=== PATIENT | female | born 1990 | race Caucasian/White ===

== ENCOUNTER 2016-08-10 15:34 | Emergency (ER) | payer OTHER ==
[2016-08-10 15:58] VITALS: O2SAT 97
[2016-08-10] MEDS ORDERED: NS 1,000 ML IV ONE (16:17)
[2016-08-10 16:21] LABS: % IMMATURE GRANULYOCYTES 0.2 % (0.0-1.1); ABSOLUTE IMMATURE GRANULOCYTES 0.01 10^3/uL (0.00-0.10); ADD DIFF? NO; ADD MORPH? NO; ADD SCAN? NO; ATYPICAL LYMPHOCYTE FLAG 10 (0-99); FRAGMENT RBC FLAG 0 (0-99); HEMATOCRIT 38.4 % (38.0-47.0); HEMOGLOBIN 13.5 g/dL (12.6-16.3); LEFT SHIFT FLG 20 (0-99); LIPEMIA HEMOLYSIS FLAG 90 (0-99); MEAN CELL HEMOGLOBIN 32.5 pg (27.9-34.1); MEAN CELL HEMOGLOBIN CONCENTR. 35.2 g/dL (32.4-36.7); MEAN CELL VOLUME 92.5 fL (81.5-99.8); MEAN PLATELET VOLUME 13.8 fL (8.7-11.7); PLATELET CLUMPS FLAG 0 (0-99); PLATELET COUNT 156 10^3/uL (150-400); RED BLOOD CELL COUNT 4.15 10^6/uL (4.18-5.33); RED CELL DISTRIBUTION WIDTH 11.8 % (11.5-15.2)
[2016-08-10 16:33] LABS: ALANINE AMINOTRANSFERASE 27 IU/L (9-52); ALBUMIN 3.6 g/dL (3.5-5.0); ALKALINE PHOSPHATASE 52 IU/L (38-126); ANION GAP 12 mEq/L (8-16); ASPARTATE AMINOTRANSFERASE 24 IU/L (14-46); BILIRUBIN,TOTAL 0.5 mg/dL (0.1-1.4); CALCIUM 8.7 mg/dL (8.5-10.4); CARBON DIOXIDE 25 mEq/l (22-31); CHLORIDE 99 mEq/L (97-110); CREATININE 0.8 mg/dL (0.6-1.0); GLOMERULAR FILTRATION RATE > 60; GLUCOSE 189 mg/dL (70-100); POTASSIUM 3.6 mEq/L (3.5-5.2); SODIUM 136 mEq/L (134-144); TOTAL PROTEIN 6.6 g/dL (6.3-8.2)
[2016-08-10] MEDS ORDERED: IBUPROFEN 200 MG TAB PO ONE (16:59)
[2016-08-10] MEDS ORDERED: OSELTAMIVIR PHOSPHATE 75 MG CAP PO ONE (17:18)
[2016-08-10 17:23] LABS: COLOR YELLOW; LEUKOCYTE ESTERASE,URINE NEGATIVE (NEGATIVE); NITRITE,URINE NEGATIVE (NEGATIVE); PH,URINE 6.5 (5.0-7.5)
[2016-08-10 17:30] LABS: BACTERIA TRACE /hpf (NONE SEEN); WBC,URINE NONE SEEN /hpf (0-3)
--- NOTE | 2016-08-10 17:30 | EDPHY ---
H & P Stated Complaint: fever for 48 hours, body aches, congestion Time Seen by Provider: 08/10/16 15:51 HPI/ROS: CHIEF COMPLAINT: Cough and fever History by patient HISTORY OF PRESENT ILLNESS: 26-year-old woman with history of type 1 diabetes on insulin pump presents complaining of 2 days of fever as high as 101 at home, cough productive of some green sputum, clear nasal discharge, chest congestion and general malaise. She has had a couple episodes of vomiting has been unable to eat. She denies any diarrhea. She has been keeping down fluids. She denies any sore throat or abdominal pain. She denies any dysuria, urgency frequency or hematuria but does have low back pain. She has tried some ibuprofen and Tylenol at home. Her sugars have been under control. She just returned from a trip to [place] and is supposed to leave tomorrow for [place]. REVIEW OF SYSTEMS: As in HPI, and all other systems reviewed and are negative Source: Patient - Personal History LMP (Females 10-55): Now Tetanus Vaccine Date: < 10 years - Medical/Surgical History Hx Asthma: No Hx Chronic Respiratory Disease: No Hx Diabetes: Yes Hx Cardiac Disease: No Hx Renal Disease: No Hx Cirrhosis: No Hx Alcoholism: No Hx HIV/AIDS: No Hx Splenectomy or Spleen Trauma: No Other PMH: DM type 1, ankle sx, pneumonia, hypothyroid, depression - Social History Smoking Status: Never smoked - Physical Exam Exam: General Appearance: Alert, nontoxic-appearing. Eyes: Pupils equal and round no pallor or injection. ENT, Mouth: Mucous membranes moist. no erythema or tonsillar enlargement or exudates, no cervical or submandibular adenopathy Respiratory: Normal, effort, There are no retractions, lungs are clear to auscultation. Positive end-expiratory wheezes with cough Cardiovascular: Regular rate and rhythm. Gastrointestinal: Abdomen is soft and nontender, no masses, bowel sounds normal. Back: No CVA tenderness Neurological: Awake, alert and oriented x 3, no pronator drift, normal gait, no pronator drift Skin: Warm and dry, no rashes. Musculoskeletal: Neck is supple nontender. Extremities are symmetrical, full range of motion. Psychiatric: Patient has normal affect, there is no agitation. Constitutional: Initial Vital Signs Temperature (C) 38.4 C H 08/10/16 15:56 Heart Rate 103 H 08/10/16 15:56 Respiratory Rate 18 08/10/16 15:56 Blood Pressure 135/88 H 08/10/16 15:56 O2 Sat (%) 97 08/10/16 15:56 O2 Delivery Mode Room Air Allergies/Adverse Reactions: No Known Allergies Allergy (Verified 08/10/16 15:55) Home Medications: Medication Instructions Recorded Humalog 50 U Daily 09/21/11 Levothyroxine [Synthroid 75 mcg 75 mcg PO DAILY06 09/21/11 (RX)] Wellbutrin 100mg (RX) 02/27/13 Humalog 03/08/15 Lutera-28 Tablet 03/08/15 Synthroid 03/08/15 Trulicity 09/15/15 Albuterol [Proventil Inhaler HFA 1 - 2 puffs IH Q4H #1 mdi 08/10/16 (*)] Oseltamivir Phosphate [Tamiflu 75 75 mg PO BID #10 cap 08/10/16 mg (*)] Medical Decision Making - Diagnostics Imaging Results: Imaging Impressions Chest X-Ray 08/10/16 16:18 Impression: Mild peribronchial thickening suggesting airways disease/bronchitis. ED Course/Re-evaluation: [age] year old woman with type 1 diabetes presents with fever and respiratory symptoms. Chest x-rays pain which showed no evidence of pneumonia. Labs are unremarkable and there is no evidence of diabetic ketoacidosis. There is no evidence of urinary tract infection. Influenza test was positive for influenza A. Patient is just on the cut off for benefits of treatment with Tamiflu we discussed this and she opted to go ahead and start Tamiflu was given a dose in the emergency department. Patient was given a L normal saline because of her vomiting and presumed volume depletion. There is no evidence of acute bacterial infection, systemic toxicity or DKA. Patient is discharged home with prescription for Tamiflu as well as albuterol for her cough. - Data Points Laboratory Results: Laboratory Results 08/10/16 16:00 08/10/16 16:00 08/10/16 08/10/16 08/10/16 17:00 16:55 16:00 WBC RBC Hgb Hct MCV MCH MCHC RDW Plt Count MPV Neut % (Auto) Lymph % (Auto) [place] % (Auto) Eos % (Auto) Baso % (Auto) Nucleat RBC Rel Count Absolute Neuts (auto) Absolute Lymphs (auto) Absolute Monos (auto) Absolute Eos (auto) Absolute Basos (auto) Absolute Nucleated RBC Immature Gran % Immature Gran # Sodium 136 mEq/L mEq/L (134-144) Potassium 3.6 mEq/L mEq/L (3.5-5.2) Chloride 99 mEq/L mEq/L (97-110) Carbon Dioxide 25 mEq/l mEq/l (22-31) Anion Gap 12 mEq/L mEq/L (8-16) BUN 6 mg/dL L mg/dL (7-23) Creatinine 0.8 mg/dL mg/dL (0.6-1.0) Estimated GFR > 60 Glucose 189 mg/dL H mg/dL (70-100) Calcium 8.7 mg/dL mg/dL (8.5-10.4) Total Bilirubin 0.5 mg/dL mg/dL (0.1-1.4) AST 24 IU/L IU/L (14-46) ALT 27 IU/L IU/L (9-52) Alkaline Phosphatase 52 IU/L IU/L (38-126) Total Protein 6.6 g/dL g/dL (6.3-8.2) Albumin 3.6 g/dL g/dL (3.5-5.0) Urine Color YELLOW Urine Appearance HAZY Urine pH 6.5 (5.0-7.5) Ur Specific [place] <= 1.005 (1.002-1.030) Urine Protein NEGATIVE (NEGATIVE) Urine Ketones NEGATIVE (NEGATIVE) Urine Blood 3+ H (NEGATIVE) Urine Nitrate NEGATIVE (NEGATIVE) Urine Bilirubin NEGATIVE (NEGATIVE) Urine Urobilinogen 0.2 EU EU (0.2-1.0) Ur Leukocyte Esterase NEGATIVE (NEGATIVE) Urine RBC 5-10 /hpf H /hpf (0-3) Urine WBC NONE SEEN /hpf /hpf (0-3) Ur Epithelial Cells TRACE /lpf /lpf (NONE-1+) Urine Bacteria TRACE /hpf H /hpf (NONE SEEN) Urine Glucose NEGATIVE (NEGATIVE) Influenza A,B Rapid POSITIVE FOR FLU A H (NEGATIVE) 08/10/16 16:00 WBC 5.78 10^3/uL 10^3/uL (3.80-9.50) RBC 4.15 10^6/uL L 10^6/uL (4.18-5.33) Hgb 13.5 g/dL g/dL (12.6-16.3) Hct 38.4 % % (38.0-47.0) MCV 92.5 fL fL (81.5-99.8) MCH 32.5 pg pg (27.9-34.1) MCHC 35.2 g/dL g/dL (32.4-36.7) RDW 11.8 % % (11.5-15.2) Plt Count 156 10^3/uL 10^3/uL (150-400) MPV 13.8 fL H fL (8.7-11.7) Neut % (Auto) 85.0 % H % (39.3-74.2) Lymph % (Auto) 8.0 % L % (15.0-45.0) [place] % (Auto) 6.2 % % (4.5-13.0) Eos % (Auto) 0.3 % L % (0.6-7.6) Baso % (Auto) 0.3 % % (0.3-1.7) Nucleat RBC Rel Count 0.0 % % (0.0-0.2) Absolute Neuts (auto) 4.91 10^3/uL 10^3/uL (1.70-6.50) Absolute Lymphs (auto) 0.46 10^3/uL L 10^3/uL (1.00-3.00) Absolute Monos (auto) 0.36 10^3/uL 10^3/uL (0.30-0.80) Absolute Eos (auto) 0.02 10^3/uL L 10^3/uL (0.03-0.40) Absolute Basos (auto) 0.02 10^3/uL 10^3/uL (0.02-0.10) Absolute Nucleated RBC 0.00 10^3/uL 10^3/uL (0-0.01) Immature Gran % 0.2 % % (0.0-1.1) Immature Gran # 0.01 10^3/uL 10^3/uL (0.00-0.10) Sodium Potassium Chloride Carbon Dioxide Anion Gap BUN Creatinine Estimated GFR Glucose Calcium Total Bilirubin AST ALT Alkaline Phosphatase Total Protein Albumin Urine Color Urine Appearance Urine pH Ur Specific [place] Urine Protein Urine Ketones Urine Blood Urine Nitrate Urine Bilirubin Urine Urobilinogen Ur Leukocyte Esterase Urine RBC Urine WBC Ur Epithelial Cells Urine Bacteria Urine Glucose Influenza A,B Rapid Medications Given: Discontinued Medications Sodium Chloride (Ns) 1,000 mls @ 0 mls/hr IV ONCE ONE PRN Reason: Wide Open Stop: 08/10/16 16:18 Last Admin: 08/10/16 16:00 Dose: 1,000 mls Ibuprofen (Motrin) 600 mg PO EDNOW ONE Stop: 08/10/16 17:00 Last Admin: 08/10/16 17:06 Dose: 600 mg Oseltamivir Phosphate (Tamiflu) 75 mg PO EDNOW ONE Stop: 08/10/16 17:19 Last Admin: 08/10/16 17:24 Dose: 75 mg Departure - Departure Disposition: Home, Routine, Self-Care Clinical Impression: Influenza A Condition: Good Instructions: Influenza (ED) Additional Instructions: You were seen by Dr. Fatou Morgan today. Take Tamiflu as prescribed. Use ibuprofen or Tylenol as needed for fever and aches. Use albuterol inhaler as needed for cough. Return for any worsening or new concerns. Referrals: NONE *PRIMARY CARE P,. [Primary Care Provider] - As per Instructions Prescriptions: Albuterol [Proventil Inhaler HFA (*)] 1 - 2 puffs IH Q4H #1 mdi Oseltamivir Phosphate [Tamiflu 75 mg (*)] 75 mg PO BID #10 cap
[2016-08-10 18:08] VITALS: BP 134/71; PULSE 102; RESP 16; TEMP 102.2
== END 2016-08-10 17:56 | disposition home or self-care (01) ==
LOC: CED 15:34
DX: J10.1 Influenza due to other identified influenza virus with other respiratory manifestations (principal); E10.9 Type 1 diabetes mellitus without complications; Z79.4 Long term (current) use of insulin
CPT/HCPCS: 71020-PO; 80053-PO; 81003-PO; 81015-PO; 85025-PO; 87400-PO

== ENCOUNTER 2017-01-05 13:14 | Emergency (ER) | payer OTHER ==
[2017-01-05 13:28] VITALS: RESP 18
[2017-01-05] MEDS ORDERED: ACETAMINOPHEN 500 MG TAB PO ONE (13:47)
[2017-01-05] MEDS ORDERED: NS 1,000 ML IV ONE (13:49)
--- NOTE | 2017-01-05 13:52 | EDPHY ---
H & P Stated Complaint: R/O FLU Time Seen by Provider: 01/05/17 13:23 HPI/ROS: CHIEF COMPLAINT: Fever and body aches History by patient HISTORY OF PRESENT ILLNESS: 26 old woman with a history of type 1 diabetes on insulin pump presents complaining of 24 hours of flu-like symptoms. She states that yesterday she was feeling like maybe she was getting a little sick and then overnight developed a fever. In the night her sugars were low so she ate some pizza and then several hours later she began vomiting and vomited more than 5 times between 2 and 5 in the morning. She has not been able to eat since then although she has had some fluids. Although her sugars were low in the night it been high in the 200s this morning. She denies any runny nose or cough. She denies any headache. She denies any sore throat or abdominal pain. She complains primarily of diffuse body aches including her back. There has been no urinary symptoms such as dysuria, urgency or frequency. There has been no diarrhea. She did get a flu shot this year. REVIEW OF SYSTEMS: As in HPI, and all other systems reviewed and are negative Source: Patient - Personal History LMP (Females 10-55): 22-28 Days Ago Tetanus Vaccine Date: 2011 - Medical/Surgical History Hx Asthma: No Hx Chronic Respiratory Disease: No Hx Diabetes: Yes Hx Cardiac Disease: No Hx Renal Disease: No Hx Cirrhosis: No Hx Alcoholism: No Hx HIV/AIDS: No Hx Splenectomy or Spleen Trauma: No Other PMH: DM type 1, ankle sx, pneumonia, hypothyroid, depression - Social History Smoking Status: Never smoked - Physical Exam Exam: General Appearance: Alert, nontoxic-appearing. Head: normocephalic, atraumatic Eyes: Pupils equal and round, reactive to light, no pallor or injection. Mouth: Mucous membranes moist. Positive bilateral large tonsils without erythema or exudate Neck: No cervical or submandibular adenopathy Respiratory: Normal, effort, lungs are clear to auscultation. No wheezes, rales or rhonchi. Cardiovascular: Regular rate and rhythm. S1, S2, no murmurs, gallops or rubs appreciated Gastrointestinal: Abdomen is soft and nontender, no masses, bowel sounds normal. Back: No CVA tenderness, no bony tenderness Neurological: Awake, alert and oriented x 3, no pronator drift, normal gait, no pronator drift Skin: Warm and dry, no rashes. Musculoskeletal: No deformities or tenderness. Extremities: full range of motion, no edema, DP2+ bilat Psychiatric: Patient has normal affect, there is no agitation. Constitutional: Initial Vital Signs Temperature (C) 38.2 C 01/05/17 13:24 Heart Rate 103 H 01/05/17 13:24 Respiratory Rate 18 01/05/17 13:24 Blood Pressure 124/74 H 01/05/17 13:24 O2 Sat (%) 98 01/05/17 13:24 O2 Delivery Mode Room Air Allergies/Adverse Reactions: No Known Allergies Allergy (Verified 01/05/17 13:23) Home Medications: Medication Instructions Recorded Humalog 50 U Daily 09/21/11 Wellbutrin 100mg (RX) 02/27/13 Humalog 03/08/15 Synthroid 03/08/15 Trulicity 09/15/15 Medical Decision Making ED Course/Re-evaluation: 26-year-old woman with type 1 diabetes who presents with fever and multiple episodes of vomiting last night with tachycardia and fever in the ED. Patient was given IV fluids and Tylenol. Lab work was unremarkable and there is no evidence of diabetic ketoacidosis. Influenza swab was negative. I discussed the results with the patient and her mother. Patient was feeling slightly better after the IV fluids although she did complain of recurrent fever and repeat temperature was still elevated. There is no evidence of systemic toxicity which she is tolerating oral fluids. Patient is discharged home in stable condition. - Data Points Laboratory Results: Laboratory Results 01/05/17 14:01 01/05/17 14:01 01/05/17 01/05/17 01/05/17 14:01 14:01 13:34 WBC 7.77 10^3/uL 10^3/uL (3.80-9.50) RBC 4.70 10^6/uL 10^6/uL (4.18-5.33) Hgb 15.6 g/dL g/dL (12.6-16.3) Hct 43.1 % % (38.0-47.0) MCV 91.7 fL fL (81.5-99.8) MCH 33.2 pg pg (27.9-34.1) MCHC 36.2 g/dL g/dL (32.4-36.7) RDW 11.9 % % (11.5-15.2) Plt Count 190 10^3/uL 10^3/uL (150-400) MPV 12.8 fL H fL (8.7-11.7) Neut % (Auto) 85.1 % H % (39.3-74.2) Lymph % (Auto) 8.9 % L % (15.0-45.0) [place] % (Auto) 5.4 % % (4.5-13.0) Eos % (Auto) 0.1 % L % (0.6-7.6) Baso % (Auto) 0.4 % % (0.3-1.7) Nucleat RBC Rel Count 0.0 % % (0.0-0.2) Absolute Neuts (auto) 6.61 10^3/uL H 10^3/uL (1.70-6.50) Absolute Lymphs (auto) 0.69 10^3/uL L 10^3/uL (1.00-3.00) Absolute Monos (auto) 0.42 10^3/uL 10^3/uL (0.30-0.80) Absolute Eos (auto) 0.01 10^3/uL L 10^3/uL (0.03-0.40) Absolute Basos (auto) 0.03 10^3/uL 10^3/uL (0.02-0.10) Absolute Nucleated RBC 0.00 10^3/uL 10^3/uL (0-0.01) Immature Gran % 0.1 % % (0.0-1.1) Immature Gran # 0.01 10^3/uL 10^3/uL (0.00-0.10) Sodium 137 mEq/L mEq/L (134-144) Potassium 3.6 mEq/L mEq/L (3.5-5.2) Chloride 103 mEq/L mEq/L (97-110) Carbon Dioxide 23 mEq/l mEq/l (22-31) Anion Gap 11 mEq/L mEq/L (8-16) BUN 13 mg/dL mg/dL (7-23) Creatinine 1.0 mg/dL mg/dL (0.6-1.0) Estimated GFR > 60 Glucose 97 mg/dL mg/dL (70-100) Calcium 9.4 mg/dL mg/dL (8.5-10.4) Influenza A,B Rapid NEGATIVE FOR FLU (NEGATIVE) Medications Given: Discontinued Medications Acetaminophen (Tylenol) 1,000 mg PO EDNOW ONE Stop: 01/05/17 13:48 Last Admin: 01/05/17 13:56 Dose: 1,000 mg Sodium Chloride (Ns) 1,000 mls @ 0 mls/hr IV ONCE ONE; Wide Open PRN Reason: Protocol Stop: 01/05/17 13:50 Last Admin: 01/05/17 13:50 Dose: 1,000 mls Departure - Departure Disposition: Home, Routine, Self-Care Clinical Impression: Influenza-like illness Instructions: Influenza (ED) Additional Instructions: You were seen by Dr. Fatou Morgan today. You may take Tylenol and ibuprofen as needed for body aches and fever. Make sure you drink plenty of fluids. Continue to monitor sugars. Return for any worsening or new concerns. Referrals: Lolly Fenton MD [Primary Care Provider] - As per Instructions
[2017-01-05 14:10] LABS: % IMMATURE GRANULYOCYTES 0.1 % (0.0-1.1); ABSOLUTE IMMATURE GRANULOCYTES 0.01 10^3/uL (0.00-0.10); ADD DIFF? NO; ADD MORPH? NO; ADD SCAN? NO; ATYPICAL LYMPHOCYTE FLAG 0 (0-99); FRAGMENT RBC FLAG 0 (0-99); HEMATOCRIT 43.1 % (38.0-47.0); HEMOGLOBIN 15.6 g/dL (12.6-16.3); LEFT SHIFT FLG 0 (0-99); LIPEMIA HEMOLYSIS FLAG 90 (0-99); MEAN CELL HEMOGLOBIN 33.2 pg (27.9-34.1); MEAN CELL HEMOGLOBIN CONCENTR. 36.2 g/dL (32.4-36.7); MEAN CELL VOLUME 91.7 fL (81.5-99.8); MEAN PLATELET VOLUME 12.8 fL (8.7-11.7); PLATELET CLUMPS FLAG 0 (0-99); PLATELET COUNT 190 10^3/uL (150-400); RED CELL DISTRIBUTION WIDTH 11.9 % (11.5-15.2)
[2017-01-05 14:27] LABS: ANION GAP 11 mEq/L (8-16); CALCIUM 9.4 mg/dL (8.5-10.4); CARBON DIOXIDE 23 mEq/l (22-31); CHLORIDE 103 mEq/L (97-110); GLOMERULAR FILTRATION RATE > 60; GLUCOSE 97 mg/dL (70-100); POTASSIUM 3.6 mEq/L (3.5-5.2); SODIUM 137 mEq/L (134-144)
[2017-01-05] MEDS ORDERED: IBUPROFEN 600 MG TAB PO ONE (14:43)
[2017-01-05] MEDS ORDERED: IBUPROFEN 200 MG TAB PO ONE (14:48)
[2017-01-05 15:04] LABS: LEUKOCYTE ESTERASE,URINE NEGATIVE (NEGATIVE); NITRITE,URINE NEGATIVE (NEGATIVE); PH,URINE 7.5 (5.0-7.5)
[2017-01-05 15:09] VITALS: BP 121/69; PULSE 101; TEMP 101.3; O2SAT 95
[2017-01-05 15:09] LABS: COLOR DARK YELLOW
[2017-01-05 15:12] LABS: WBC,URINE OCCASIONAL /hpf (0-3)
[2017-01-05 15:13] LABS: BACTERIA TRACE /hpf (NONE SEEN); MUCUS 1+ /lpf (NONE-1+)
== END 2017-01-05 15:01 | disposition home or self-care (01) ==
LOC: CED 13:14
DX: J11.1 Influenza due to unidentified influenza virus with other respiratory manifestations (principal); E10.9 Type 1 diabetes mellitus without complications; E86.9 Volume depletion, unspecified; Z79.4 Long term (current) use of insulin
CPT/HCPCS: 80048-PO; 81003-PO; 81015-PO; 85025-PO; 87400-PO

== ENCOUNTER 2017-01-18 11:28 | Day surgery (SDC) | payer OTHER ==
--- NOTE | 2017-01-17 10:26 | GHP ---
[f rep st] PREOP HISTORY AND PHYSICAL DATE OF ADMISSION: 01/18/2017 HISTORY OF PRESENT ILLNESS: The patient is a 26-year-old female, who presents with medial right knee pain at the medial edge of her patella. She is an active individual. 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 She has a history of collision playing soccer, causing a right knee injury with swelling, possibly representing a patellar subluxation event . Earlier this year, she sustained a blow to the anterior part of the knee and sustained an edge fra cture along the medial patellar facet, partially injuring her patella femoral ligament. She has been trying to rehabilitate her knee, and is having a difficult time regaining the use of her extensor me chanism. She has discomfort, some tightness and pain along the medial patella when she squats and lo ads her knee. She has had an MRI that demonstrates a partial capsular injury. There is a small frag ment of bone displaced and also quite a bit of scar tissue thickening at the synovial edge where the capsule comes up to the patella. Her exam localizes her tenderness very specifically to the medial p atellar retinaculum were it comes up against the edge of the medial patellar facet. Arthroscopy of t he right knee is planned for debridement and cleaning up the medial capsular attachment. PAST MEDICAL HISTORY: ALLERGIES: No known drug allergies. SOCIAL HISTORY: She has never been a smoker. PAST SURGICAL HISTORY: Include a knee laceration. She has had a right ankle arthroscopy. She has h ad ear tubes. She does have type 1 diabetes. She is hypothyroid. MEDICATIONS: Include Humalog 100 units/mL subcu solution, levothyroxine 125 mcg daily, bupropion HCL XL 150 mg q.24 hours. REVIEW OF SYSTEMS: Positive from the endocrine standpoint for diabetes, as well as hypothyroid. PHYSICAL EXAMINATION: GENERAL: The patient is a well-developed, well-nourished female in no apparen t distress. HEAD AND NECK: Normocephalic, atraumatic. CHEST: Clear. CARDIOVASCULAR: Regular rat e and rhythm. ABDOMEN: Soft. NEUROLOGIC: She is alert and oriented x3. EXTREMITIES: Exam of the right knee shows full extension, including a little hyperextension. She is hesitant to flex beyond 130 degrees because of some anteromedial knee discomfort. She has a trace effusion. She has tendern ess along the medial patellar edge. When she loads and squats a little, she develops discomfort manjula g the medial capsule at the edge of the patella. Guillermo's test is negative. Negative pivot shift. No posterior sag. Collateral ligaments are stable. She is nontender along the medial and lateral j oint lines. Alyson's testing unremarkable. She has a little less muscle mass on the right side. Q angle is mildly elevated, but I do not detect apprehension moving her patella, and the patella has reasonable mobility. IMPRESSION: Right knee medial patellar avulsion fracture with medial patellar edge bone prominent sp ur and synovial irritation. PLAN: Right knee arthroscopy. I am anticipating synovial working debridement along the medial cobos lar edge. Benefits and risks of surgery have been reviewed. She has signed a consent form and wishe s to proceed. /[id number]/MODL
[2017-01-18] MEDS ORDERED: ceFAZolin 2 GM/SWFI 2 GM/20 ML SYR IVP ONE (11:40)
[2017-01-18] MEDS ORDERED: LR 1,000 ML IV SCH (11:40)
--- NOTE | 2017-01-18 11:43 | PDANEPAE ---
ANE History of Present Illness medial meniscus tear ANE Past Medical History - Cardiovascular History Hx Hypertension: No Hx Arrhythmias: No Hx Chest Pain: No Hx Coronary Artery / Peripheral Vascular Disease: No Hx CHF / Valvular Disease: No Hx Palpitations: No - Pulmonary History Hx COPD: No Hx Asthma/Reactive Airway Disease: No Hx Recent Upper Respiratory Infection: No Hx Oxygen in Use at Home: No Hx Sleep Apnea: No Sleep Apnea Screening Result - Last Documented: Negative - Neurologic History Hx Cerebrovascular Accident: No Hx Seizures: No Hx Dementia: No - Endocrine History Hx Diabetes: Yes Endocrine History Comment: IDDM type 1-Hgb A1c 6.5 -controlled w/ insulin pump. Hypothyroid - Renal History Hx Renal Disorders: No - Liver History Hx Hepatic Disorders: No - Neurological & Psychiatric Hx Hx Neurological and Psychiatric Disorders: Yes Neurological / Psychiatric History Comment: depression - Cancer History Hx Cancer: No - Congenital Disorder History Hx Congenital Disorders: No - GI History Hx Gastrointestinal Disorders: No - Other Health History Other Health History: R ankle impingement. R knee -medial meniscus tear - Chronic Pain History Chronic Pain: No - Surgical History Prior Surgeries: ear tubes age 4. object removed R knee 2004. R ankle scope- ligaments reconnected 2013 ANE Review of Systems Review of systems is: negative Review of Systems: - Exercise capacity Exercise capacity: >=4 METS METS (RN): 5 METS ANE Patient History - Allergies Allergies/Adverse Reactions: No Known Allergies Allergy (Verified 01/05/17 13:23) - Home Medications Home Medications: Humalog 50 U Daily 09/21/11 [Last Taken Unknown] Wellbutrin 100mg (RX) 02/27/13 [Last Taken Unknown] Humalog 03/08/15 [Last Taken Unknown] Synthroid 03/08/15 [Last Taken Unknown] Trulicity 09/15/15 [Last Taken Unknown] - NPO status NPO Status: no food or drink >8 hours - Anes Hx Anes Hx: no prior problems - Smoking Hx Smoking Status: Never smoked - Alcohol Use Alcohol Use: Occasionally - Family Anes Hx Family Anes Hx: none ANE Labs/Vital Signs - Labs - BMP Glucose: 228 - Vital Signs Vital Signs: reviewed preoperatively; see RN documention for details Height: 160.02 cm Weight: 63.503 kg ANE Physical Exam - Airway Mallampati Score: Class 2 Mouth exam: normal dental/mouth exam - Pulmonary Pulmonary: no respiratory distress - Cardiovascular Cardiovascular: regular rate and rhythym - ASA Status ASA Status: II ANE Anesthesia Plan Anesthesia Plan: GA w LMA
[2017-01-18] MEDS ORDERED: MIDAZOLAM 2 MG/2 ML VIAL IVP ONE (11:44)
[2017-01-18] MEDS ORDERED: LIDOCAINE 2% 5 ML SDV ONE (12:01)
[2017-01-18] MEDS ORDERED: fentaNYL 100 MCG/2 ML INJ ONE (12:01)
[2017-01-18] MEDS ORDERED: PROPOFOL 200 MG/20 ML VIAL ONE (12:01)
[2017-01-18] MEDS ORDERED: BUPIVACAINE 0.25% 30 ML SDV ONE (12:19)
[2017-01-18] MEDS ORDERED: BUPIVACAINE 0.5% 30 ML SDV ONE (12:19)
[2017-01-18] MEDS ORDERED: ONDANSETRON 4 MG/2 ML VIAL ONE (12:28)
[2017-01-18] MEDS ORDERED: KETOROLAC 30 MG/1 ML SDV ONE (12:28)
[2017-01-18] MEDS ORDERED: ALBUTEROL 3 ML DEYVIAL IH PRN (13:22)
[2017-01-18] MEDS ORDERED: NALOXONE HCL 0.4 MG/ML INJ IVP PRN (13:22)
[2017-01-18] MEDS ORDERED: HYDROCODONE/APAP 5/325 TAB PO PRN (13:22)
[2017-01-18] MEDS ORDERED: OXYCODONE/APAP 5/325 TAB PO PRN (13:22)
[2017-01-18] MEDS ORDERED: ONDANSETRON 4 MG/2 ML VIAL IVP PRN (13:22)
[2017-01-18] MEDS ORDERED: PROMETHAZINE HCL 25 MG/ML INJ IVP PRN (13:22)
[2017-01-18] MEDS ORDERED: fentaNYL 100 MCG/2 ML INJ IVP PRN (13:22)
[2017-01-18] MEDS ORDERED: ACETAMINOPHEN 500 MG TAB PO PRN (13:22)
--- NOTE | 2017-01-18 13:24 | POSTANESTH ---
Post Anesthetic Evaluation Cardiovascular Status: Normal, Stable Respiratory Status: Normal, Stable Level of Consciousness/Mental Status: Can Participate in Eval Pain Control: Adequate, Prn Tx Ordered Nausea/Vomiting Control: Adequate, Prn Tx Ordered Complications Possibly Related to Anesthesia: None Noted
[2017-01-18 14:31] VITALS: RESP 13
--- NOTE | 2017-01-18 14:31 | GOP ---
[f rep st] OPERATIVE REPORT DATE OF OPERATION: SURGEON: Ryan Valero MD ANESTHESIOLOGIST: Michael Patel MD PREOPERATIVE DIAGNOSIS: Right knee medial patellar synovitis, bony avulsion fragment, persistent med ial knee pain, probable previous subluxation event. POSTOPERATIVE DIAGNOSIS: Right knee medial plica, synovitis medial to patella, bone prominence. PROCEDURE PERFORMED: Right knee arthroscopy, excision plica, partial synovectomy and debridement of the medial retinaculum, smoothing of a patellar bone spur. FINDINGS: At surgery, exam under anesthesia demonstrates full range of motion. No effusion, stable ligamentous exam. Arthroscopically the patellofemoral articulation looks fine, and the patella seats centrally in the femoral sulcus. There is a thick fibrous plica band, abundant synovitis, and upon debridement of the synovitis, there is a bony prominence that does not appear to be a loose fragment, but it is denuded of cartilage so it is likely an old avulsion that has healed with some prominence. SPECIMENS: None. ESTIMATED BLOOD LOSS: Minimal. INDICATIONS: The patient is an athletic female who presents with medial right knee pain. In her his tory, she has had collisions playing soccer, possibly a subluxation event. Studies show a medial bon y prominence that is likely a small avulsion from a retinacular traction injury. There is also quite a bit of soft tissue as well as a probable plica band. All of this generating medial patellar edge pain with loading of her extensor mechanism. DESCRIPTION OF PROCEDURE: The patient was taken to the operating room, placed supine on the operatin g table. Placed under general anesthetic with laryngeal mask ventilation. She received 2 g of IV An cef. A tourniquet was fit high on the right thigh. Right thigh was put in a leg lion. The knee w as prepped and draped in the usual fashion with chlorhexidine. Standard arthroscopy portals were use d. The entire knee was inspected with the above-noted findings. There was no articular surface or m eniscal pathology to treat. I focused my attention on the medial retinaculum at its junction with th e medial patellar border. I did a synovectomy. I excised the thickened plica band. I uncovered a b jose f prominence that I carefully probed and manipulated; it did not appear to be in fibrous union or a n obvious separate fragment, so I simply took a 4 mm round bur and burred it smooth and actually inde nted it a little bit so that it would not load up on the trochlear groove. The remainder of the reti naculum appeared intact. I did not want to destabilize her medial retinaculum in terms of her patell ar stability. The joint was irrigated. I placed 15 cc of 0.5% plain Marcaine in the joint and close d the portals with 4-0 Prolene. The wounds were dressed with Betadine-soaked Adaptic, 4 x 4, sterile Webril, and a long-leg SHARON stocking. There were no complications. DRAINS: None. COUNTS: All counts correct. DISPOSITION: Tourniquet was not required, and the patient was taken in stable condition to Recovery. /[id number]/MODL
[2017-01-18] MEDS ORDERED: HYDROCODONE/APAP 5/325 TAB ONE (14:35)
[2017-01-18 14:42] VITALS: TEMP 97.9
[2017-01-18 15:35] VITALS: BP 120/69
[2017-01-18 15:40] VITALS: O2SAT 98
== END 2017-01-18 15:34 | disposition home or self-care (01) ==
LOC: FSGY 11:28
PROVIDERS: ATTEND Orthopaedic Surgery
PROC: 0SQC4ZZ Repair Right Knee Joint, Percutaneous Endoscopic Approach (ICD-10-PCS; principal; 2017-01-18 13:45)
PROC: 0SBC4ZZ Excision of Right Knee Joint, Percutaneous Endoscopic Approach (ICD-10-PCS; principal; 2017-01-18 13:45)
DX: M67.51 Plica syndrome, right knee (principal); M65.9 Synovitis and tenosynovitis, unspecified; E10.9 Type 1 diabetes mellitus without complications; E03.9 Hypothyroidism, unspecified
CPT/HCPCS: J0171; J0690; J1885; J2250; J2405; J2704; J3010